=== PATIENT | male | born 1980 | race Two or more races ===

== ENCOUNTER 2024-03-21 12:31 | Emergency (ER) | payer SELFPAY ==
[2024-03-21] MEDS ORDERED: Ondansetron 4 MG Tab PO ONE (14:00)
[2024-03-21] MEDS: Ibuprofen 400 MG Tab PO ONE (14:22)
[2024-03-21] MEDS: Ondansetron 4 MG Tab.DIS PO ONE (14:22)
[2024-03-21] MEDS: Diazepam 2 MG Tab PO ONE (14:22)
== END 2024-03-21 16:00 | disposition home or self-care (01) ==
LOC: MW.ED 12:31
DX: M62.830 Muscle spasm of back (principal); Z86.16 Personal history of COVID-19; Z79.899 Other long term (current) drug therapy
CPT/HCPCS: 99283; A9270

== ENCOUNTER 2024-04-04 13:20 | Emergency (ER) | payer SELFPAY ==
[2024-04-04] MEDS: Cyclobenzaprine 10 MG Tab PO ONE (13:47)
[2024-04-04] MEDS: Ketorolac 60 MG/2 ML SDV IM ONE (13:49)
[2024-04-04] MEDS: Acetaminophen/oxyCODONE 325-10 MG Tab PO ONE (13:51)
[2024-04-04] MEDS: methylPREDNISolone Sodium Succinate 125 MG/2 ML SDV IM ONE (13:52)
== END 2024-04-04 15:47 | disposition home or self-care (01) ==
LOC: MW.ED 13:20
DX: M51.36 Other intervertebral disc degeneration, lumbar region (principal); Z75.8 Other problems related to medical facilities and other health care
CPT/HCPCS: 72131; 96372; 99284; A9270; J2919; 99283